=== PATIENT | male | born 1970 | race Hispanic/Latino ===

== ENCOUNTER 2018-02-20 05:12 | Emergency (ER) | payer MEDICAID ==
[2018-02-20 05:18] VITALS: BMI 22.5
[2018-02-20 05:28] VITALS: BP 115/69; PULSE 53; RESP 18; TEMP 97.8; O2SAT 95
--- NOTE | 2018-02-20 05:30 | ED PDOC ---
Arrival/HPI - General Chief Complaint: Rib Injury Time Seen by Provider: 02/20/18 05:15 Historian: Patient - History of Present Illness Narrative History of Present Illness (Text): 02/20/18 05:26 Willem Brunner is a 47 year old male who presents to the Emergency department complaining of left-sided rib pain. Patient states a few days prior, he tripped while jogging his dog. Patient states in an attempt to avoid falling to the ground, he twisted his body and injured his left-lateral rib cage. Patient states pain is worse with movement. Patient denies any shortness of breath, back pain, neck pain, headache, dizziness or any other complaints. Symptom Onset: Gradual Activities at Onset: Light Context: Walking (Running) Past Medical History - Provider Review Nursing Documentation Reviewed: Yes - Psychiatric Hx Substance Use: No Family/Social History - Physician Review Nursing Documentation Reviewed: Yes Family/Social History: Unknown Family HX Smoking Status: Light Smoker < 10 Cigarettes Daily Hx Alcohol Use: No Hx Substance Use: No Allergies/Home Meds Allergies/Adverse Reactions: Allergies No Known Allergies Allergy (Verified 02/20/18 05:18) Review of Systems - Physician Review All systems were reviewed & negative as marked: Yes - Review of Systems Constitutional: Normal. absent: Fevers Eyes: Normal ENT: Normal Respiratory: Normal. absent: SOB, Cough Cardiovascular: Normal. absent: Chest Pain Gastrointestinal: Normal. absent: Abdominal Pain, Diarrhea, Nausea, Vomiting Genitourinary Male: Normal. absent: Dysuria, Frequency, Hematuria, Urinary Output Changes Musculoskeletal: Other (+left rib cage pain). absent: Back Pain, Neck Pain Skin: Normal. absent: Rash Neurological: Normal. absent: Headache, Dizziness Endocrine: Normal Hemo/Lymphatic: Normal Psychiatric: Normal Physical Exam Vital Signs Reviewed: Yes Vital Signs Temp Pulse Resp BP Pulse Ox 02/20/18 05:28 97.8 F 53 L 18 115/69 95 Temperature: Afebrile Blood Pressure: Normal Pulse: Regular Respiratory Rate: Normal Appearance: Positive for: Well-Appearing, Non-Toxic, Comfortable Pain Distress: None Mental Status: Positive for: Alert and Oriented X 3 - Systems Exam Head: Present: Atraumatic, Normocephalic Pupils: Present: PERRL Extroacular Muscles: Present: EOMI Conjunctiva: Present: Normal Mouth: Present: Moist Mucous Membranes Neck: Present: Normal Range of Motion. No: Meningeal Signs, MIDLINE TENDERNESS , Paraspinal Tenderness Respiratory/Chest: Present: Clear to Auscultation, Good Air Exchange, Tender to Palpation (Mild tenderness to left lateral rib cage). No: Respiratory Distress , Accessory Muscle Use Cardiovascular: Present: Regular Rate and Rhythm, Normal S1, S2. No: Murmurs Abdomen: No: Tenderness, Distention, Peritoneal Signs Back: Present: Normal Inspection Upper Extremity: Present: Normal Inspection. No: Cyanosis, Edema Lower Extremity: Present: Normal Inspection. No: Edema Neurological: Present: GCS=15, CN II-XII Intact, Speech Normal Skin: Present: Warm, Dry, Normal Color. No: Rashes Psychiatric: Present: Alert, Oriented x 3, Normal Insight, Normal Concentration Medical Decision Making ED Course and Treatment: 02/20/18 05:26 Impression: 47 year old female complaining of left lateral rib pain s/p injury. Plan: -- XR Left Ribs -- Ultram -- Reassess and disposition Progress Notes: - RAD Interpretation Narrative RAD Interpretations (Text): 02/20/18 06:52 CXR/Ribs- no acute process Radiology Orders: 02/20/18 05:27 RIBS LEFT & PA CHEST [RAD] Stat [employer] Manager: ED Physician - Medication Orders Current Medication Orders: Discontinued Medications Tramadol HCl (Ultram) 50 mg PO STAT STA Stop: 02/20/18 05:33 Last Admin: 02/20/18 05:40 Dose: 50 mg MAR Pain Assessment Document 02/20/18 05:40 CNR (Rec: 02/20/18 05:40 CNR [id number]) Pain Reassessment Is this a pain reassessment? Yes - Scribe Statement The provider has reviewed the documentation as recorded by the Zain Sim Provider Scribe Attestation: All medical record entries made by the Scribe were at my direction and personally dictated by me. I have reviewed the chart and agree that the record accurately reflects my personal performance of the history, physical exam, medical decision making, and the department course for this patient. I have also personally directed, reviewed, and agree with the discharge instructions and disposition. Disposition/Present on Arrival - Present on Arrival Any Indicators Present on Arrival: No History of DVT/PE: No History of Uncontrolled Diabetes: No Urinary Catheter: No History of Decub. Ulcer: No History Surgical Site Infection Following: None - Disposition Have Diagnosis and Disposition been Completed?: Yes Diagnosis: Rib pain on left side, Muscle strain Disposition: HOME/ ROUTINE Disposition Time: 06:53 Patient Plan: Discharge Condition: GOOD Discharge Instructions (ExitCare): Chest Pain (ED), Muscle Strain (DC) Additional Instructions: Avoid strenuous physical activity/rest next few days/take meds as prescribed/ follow up with your doctor Prescriptions: Tramadol HCl [Ultram] 50 mg PO Q6 PRN #12 tab PRN Reason: Pain, Moderate (4-7) Forms: [facility] ([place])
--- NOTE | 2018-02-20 09:21 | RAD ---
PROCEDURE: Radiographs of the Chest and Left Ribs. HISTORY: pain COMPARISON: None available. TECHNIQUE: Frontal radiograph of the chest and multiple oblique radiographs of the left ribs were obtained. FINDINGS: LEFT RIBS: No fracture or focal lesion visualized. LUNGS: Clear. PLEURA: No pneumothorax or pleural fluid. CARDIOVASCULAR: Normal sized heart. No pulmonary vascular congestion. OTHER FINDINGS: None. IMPRESSION: Unremarkable radiographs of the chest and left ribs. No left rib fracture.
== END 2018-02-20 07:01 | disposition home or self-care (01) ==
LOC: ED 05:12
DX: S29.011A Strain of muscle and tendon of front wall of thorax, initial encounter (principal); W01.0XXA Fall on same level from slipping, tripping and stumbling without subsequent striking against object, initial encounter; Y92.89 Other specified places as the place of occurrence of the external cause